=== PATIENT | male | born 1970 ===

== ENCOUNTER 2023-09-26 08:05 | Outpatient (REF) | payer OTHER, SELFPAY ==
--- NOTE | ~2023-09-26 | XR_ITS ---
EXAMINATION: XR WRIST, LEFT CLINICAL INFORMATION: Pain. COMPARISON: None available. TECHNIQUE: PA, lateral, and oblique views of the left wrist. FINDINGS: Comminuted, displaced and impacted distal intra-articular radial fracture. Displaced ulnar styloid fracture. On the lateral view, there is anterior subluxation of the carpal bones with respect to the radius and ulna. Carpal rows are maintained. No additional fractures. Significant soft tissue swelling surrounding the wrist. No unexpected radiopaque foreign bodies. XR/XR wrist LT min 3V IMPRESSION: 1. Distal radial and ulnar fractures as above. 2. Anterior subluxation of the carpal bones with respect to the radius and ulna.
== END 2023-09-26 08:06 | disposition home or self-care (01) ==
LOC: HO.HOSX 08:05
PROVIDERS: PCP Nurse Practitioner Family; Visit Provider Physician Assistant
DX: M25.532 Pain in left wrist (principal)
CPT/HCPCS: 73110

== ENCOUNTER 2023-09-26 08:05 | Outpatient (AMB) | payer OTHER, SELFPAY ==
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
[2023-09-26 08:39] VITALS: BMI 25.4
== END 2023-09-26 09:31 | disposition home or self-care (01) ==
PROVIDERS: PCP Nurse Practitioner Family; Visit Provider Physician Assistant
DX: S52.561A Barton's fracture of right radius, initial encounter for closed fracture (principal)
CPT/HCPCS: 25600; 99204

== ENCOUNTER 2023-09-27 08:19 | Day surgery (SDC) | payer OTHER, SELFPAY ==
[2023-09-27] VITALS (10 sets, daily range): BP systolic 97–110; BP diastolic 63–76; PULSE 54–70; RESP 14–20; TEMP 36.2–36.4; O2SAT 94–99; BMI 26.5
--- NOTE | ~2023-09-27 | FL_ITS ---
CLINICAL INDICATION: Left wrist fracture FINDINGS: Technical assistance and equipment were provided by the Department of Radiology during intraoperative fluoroscopy for left wrist ORIF. 7, limited fluoroscopic spot images are submitted. A radiologist was not present during the procedure. Images redemonstrate the previously seen comminuted, impacted fracture of the distal end of the left radius. Subsequent images demonstrate various stages of placement of fixation plate and screws across this fracture. There may be minimal widening of the scapholunate space, equivocal. An avulsion fracture of the ulnar styloid remains. The images are available for review on PACS. TOTAL FLUOROSCOPY TIME: 87 seconds. DOSE AREA PRODUCT: 0.2 Gy-cm2 (nevarez-centimeter squared) FL/FL guidance in OR IMPRESSION: Technical assistance and equipment provided by the Department of Radiology during intraoperative fluoroscopy, as above. Please see operative report for further details.
--- NOTE | 2023-09-27 09:14 | P.OP_ITS ---
Operative Note Operative Note Date of Service: 09/27/23 Narrative: Operative Note Narrative: Preop diagnosis: 1. Left Distal radius fracture, volar Anglin Postop diagnosis: Same Procedure: 1. Left Distal radius fracture open reduction internal fixation, comminuted 3+part intra-articular Surgeon: Aleena Hunter MD Anesthesia: General anesthesia plus regional block Findings: Left distal radius fracture, volar Anglin variant with significant comminution of the distal fragment including the articular surface. He had DRUJ laxity after fixation of the distal radius Implants: A 3 hole Accu Med volar locking plate, with 5x 2.3 mm locking pegs/screws, and 3 3.5 mm cortical screws, and 2 X 0.062 K-wires Tourniquet time: 101 minutes EBL: 5.0 ml Specimen: None Drains: None Complications: None Disposition: Brought to the recovery room in stable condition Plan: Follow-up in 10-14 days for wound check, suture removal and postop radiographs The patient will be placed a [place] cast. Cast change at 4 weeks. Placed back in a [place] cast and remove the K-wires between 5 and 6 weeks. Encouraged no lifting of anything heavier than a cell phone. Please encourage active and passive range of motion of the digits. Indications: The patient is a 53 year old man with a displaced volar Anglin type distal radius fracture with comminution . The risks and benefits of operative treatment, including but not limited to risk of damage to blood vessels, nerves, tendons, infection, recurrence, persistent pain or numbness, incomplete resolution of preoperative symptoms, or need for further surgery were discussed with the patient and they wished to proceed with surgery. Procedure: Once consent was obtained patient was brought back to the operating suite and placed in the operating table in a supine position. A regional block was performed by the anesthesia team. Perioperative antibiotics and anesthesia was administered by the anesthesia team. A tourniquet was applied to the proximal aspect of the left upper extremity and the limb was prepped and draped in a standard surgical fashion. The limb was elevated exsanguinated with Esmarch bandage and the tourniquet inflated to 250 mm of mercury for a total tourniquet time of 101 minutes. The FluoroScan was used throughout the case to assess our reduction, and facilitate implant placement. I made an 8 cm longitudinal incision over the distal aspect of the flexor carpi radialis tendon. The incision was made through the skin to the subcutaneous tissue using a 15. Blade. Then carefully dissected down to flexor carpi radialis tendon she tenotomy scissors. The FCR tendon sheath was then incised longitudinally using tenotomy scissors under direct visualization. The FCR tendon was then retracted ulnarly. I then made a longitudinal incision in the volar forearm fascia through the floor of FCR tendon sheath using tenotomy scissors under direct visualization. I identified the interval between the radial artery and the flexor tendons. This interval was developed further with my index finger, releasing some of the muscular fibers of the flexor pollicis longus. A dull weatlander retractor was then placed. I then created an ulnarly based flap of the pronator quadratus by releasing the radial and distal edges using a 15. Blade. A Silva elevator was used to elevate the pronator quadratus from the volar surface of the distal radius. This then revealed to us our distal radius fracture. This is a comminuted intra-articular volar Anglin type fracture. The carpus and proximal articular fragment were migrated proximally 1.5-2 cm. In addition to the main sagittal fracture line resulting in the volar Anglin fragment, there were also several longitudinally oriented fractures extending through the distal fragment. An open reduction was then performed on our distal radius fracture. It was held provisionally using a 0.062 K-wire passed retrograde through the radial styloid extending obliquely to the more proximal ulnar cortex of the radial shaft. I then placed a short standard 3 hole Accu Med volar locking plate on the volar surface of the distal radius. I placed a single K-wire through the distal aspect of the plate and into the distal radius. This was assessed using fluoroscopic images. I was satisfied with the placement of our plate. I then placed 4x 2.3 mm locking screws/pegs in the distal aspect of the plate and distal radius by 1st drilling bicortically with a 1.8 mm drill bit, measuring with a depth gauge, and placing the appropriate length locking screws/pegs. The placement of our plate and screws was then assessed again using fluoroscopic images. The once satisfied with the placement of the volar locking plate and screws on the distal aspect of the distal radius, the plate was then reduced to the shaft of the radius. I then placed 3 3.5 mm cortical screws to the proximal aspect of the plate and into the shaft of the radius. This was done by 1st drilling bicortically with a 2.8 mm drill bit, measuring with a depth gauge, and placing the appropriate length screw. The provisional oblique K-wire was removed. I then placed an additional 2.3 mm locking peg into the radial styloid fragment. The DRUJ was assessed and found to have some laxity on exam. I reduced the DRUJ and put the wrist and some supination. I then passed 20.062 K- wires transversely through the distal ulna, across the DRUJ and into the distal radius. Final radiographs were then obtained. The pins were bent cut short had pin caps applied. I was satisfied with our reduction and placement of all implants. At this point the wound was irrigated with normal saline. The pronator quadratus was reduced back over the volar locking plate using some 3-0 Vicryl suture material. The tourniquet was then deflated and hemostasis was obtained with a brief period of local pressure and bipolar monopolar electrocautery. The subcutaneous layer was then reapproximated using some 4-0 Vicryl suture, and the skin edges were reapproximated using some 5 0 Prolene suture. The wound was then infiltrated with some 1% lidocaine with epinephrine postop pain control. A sterile dressing and a sugar-tong splint allowing for active flexion and extension of the digits was applied. The patient appears to have tolerated the procedure well and with no complications. All digits were well vascularized conclusion of the case.
--- NOTE | 2023-09-27 09:14 | MHC.SHP ---
Pre-Procedural Eval Section A - 24 Hr Update-Section A only Date of Service: 09/27/23 The patient is an INPATIENT: No Changes since office visit: No Cold of Flu in the past 2 weeks, No New Medical Problems, No Changes in Medication and No Patient answered all questions The patient has been examined within 24 hours of the surgical procedure. The History & Physical has been completed within 30 days and I have reviewed it.: Yes Section B - Complete if H&P > 30 days Chief Complaint: Unspecified fracture of the lower end of left radi Allergies: Allergies Allergy/AdvReac Type Severity Reaction Status Date / Time No Known Allergies Allergy Verified 09/26/23 08:22 Plan I have reviewed the history and physical and performed a pertinent physical examination on my patient. No changes have occurred unless specified. Time Spent With Patient Time: Total time managing care of this patient today ____ minutes.
--- NOTE | 2023-09-27 09:19 | HO.ANESPROP2 ---
HPI - Anesthesia Eval Consult details Narrative: For ORIF left wrist PMFSH Active Problems Active Problems: All Active Problems (Updated 09/26/23 @ 09:01 by Karen Ruby PA-C) Distal radius fracture, right (Acute) Past Medical History Medical History (Updated 09/26/23 @ 09:01 by Karen Ruby PA-C) Back pain Depression Family History Family history of problems with anesthesia: No Surgical History Surgical History (Updated 09/26/23 @ 08:49 by Karen Ruby PA-C) History of surgery on lower extremity History of Problems with Anesthesia: No Social History Social History (Updated 09/26/23 @ 08:24 by Onelia Ceballos Luzmaria) Patient Tobacco Use Status: Current everyday Tobacco user Tobacco use type: Cigarette Cigarette Packs Per Day: 0.5 Cigarettes Per Day: 10.0 Use of substances other than those prescribed or required for medical reasons: Yes Are you DNR?: No Advance Directives: No Advance Directives Information Provided: Yes Current occupational status: unemployed Current occupation: right hand dominant Meds Allergies Allergy/AdvReac Type Severity Reaction Status Date / Time No Known Allergies Allergy Verified 09/26/23 08:22 Exam Height,Weight and Vital Signs: Height 6 ft Weight 88.541 kg Last Vital Signs Temp 97.5 F 09/27/23 09:06 Pulse 65 09/27/23 09:06 Resp 18 09/27/23 09:06 BP 110/67 09/27/23 09:06 Pulse Ox 95 09/27/23 09:06 O2 Del Method Room Air 09/27/23 09:06 Airway Mallampati Class: I TM Dist: >3cm Neck ROM: Full Loose/Missing/Broken Teeth: No Heart: ok Lungs: ok Assessment and Plan Assessment Anesthesia Assessment: Anesthesia Plan Discussed and Chart Reviewed Final Anesthetic Review Family History of Problems with Anesthesia: No History of Problems with Anesthesia: No NPO: Yes ASA Class: I Final Preanesthetic Review: No Changes in Pt Med Stat, Meds/Allgs Chart Reviewed, Consent Obtained/Reviewed and Anes Risks/Benef Reviewed Patient Risk: Low Procedure Risk: Low Anesthetic Plan Anesthetic Plan: GA, Regional Block and Agree w/ Assess. and Plan Disposition: Standard PACU
[2023-09-27] MEDS: Lactated Ringers 1,000 ML 50 ML IVCONT (09:34)
== END 2023-09-27 15:50 | disposition home or self-care (01) ==
PROVIDERS: PCP Nurse Practitioner Family; Visit Provider Orthopaedic Surgery
PROC: (CPT 25609; principal; 2023-09-27 10:20)
DX: S52.562A Barton's fracture of left radius, initial encounter for closed fracture (principal); M25.232 Flail joint, left wrist; V89.2XXA Person injured in unspecified motor-vehicle accident, traffic, initial encounter; X58.XXXA Exposure to other specified factors, initial encounter; Y93.55 Activity, bike riding; Y92.410 Unspecified street and highway as the place of occurrence of the external cause; Y99.9 Unspecified external cause status; M54.9 Dorsalgia, unspecified; F32.A Depression, unspecified; F17.210 Nicotine dependence, cigarettes, uncomplicated
CPT/HCPCS: 25609; C1713; C1769; J0665; J0690; J1100; J2250; J2704; J2795; J3010

== ENCOUNTER → 2023-09-27 08:19 | Outpatient (BNV) | payer OTHER, SELFPAY | PROVIDERS: PCP Nurse Practitioner Family; Visit Provider Orthopaedic Surgery | DX: S52.562A Barton's fracture of left radius, initial encounter for closed fracture (principal); Z04.3 Encounter for examination and observation following other accident | CPT/HCPCS: 25609 ==

== ENCOUNTER 2023-10-09 15:29 | Outpatient (REF) | payer OTHER, SELFPAY | END 2023-10-09 15:30 | disposition home or self-care (01) | LOC: HO.HOSX 15:29 | PROVIDERS: Visit Provider Orthopaedic Surgery | DX: Z13.89 Encounter for screening for other disorder (principal) ==

== ENCOUNTER 2023-10-10 12:25 | Outpatient (REF) | payer OTHER, SELFPAY ==
--- NOTE | ~2023-10-10 | XR_ITS ---
EXAMINATION: XR WRIST, LEFT CLINICAL INFORMATION: Pain in left wrist, left wrist fracture COMPARISON: Fluoroscopy images of 09/27/2023. Radiographs of 09/26/2023. TECHNIQUE: PA, lateral, and oblique views of the left wrist. FINDINGS: Redemonstration of comminuted, impacted distal intra-articular radial fracture with fixation plate and screws. Two K wires have been placed horizontally along the distal aspect. Alignment is improved since 09/26/2023 preop images. Redemonstration of mild widening of the scapholunate space. Redemonstration of avulsion fracture of the ulnar styloid. XR/XR wrist LT min 3V IMPRESSION: Status post ORIF of distal radial fracture.
== END 2023-10-10 12:26 | disposition home or self-care (01) ==
LOC: HO.HOSX 12:25
PROVIDERS: PCP Nurse Practitioner Family; Visit Provider Orthopaedic Surgery
DX: S52.502D Unspecified fracture of the lower end of left radius, subsequent encounter for closed fracture with routine healing (principal); R20.0 Anesthesia of skin; R20.2 Paresthesia of skin
CPT/HCPCS: 73110; 97140; 99212

== ENCOUNTER 2023-10-10 12:25 | Outpatient (AMB) | payer OTHER, SELFPAY ==
--- NOTE | 2023-10-10 12:28 | A.OFFVIS_ITS ---
Intake Intake Visit Reasons: PO LT distal radius ORIF 09/26/23 AR Intake Note: Micheal 53 yr old male presents today for his PO LT distal radius ORIF 09/26/23 AR. Dressing removed and xrays updated in office. States he he has pain and swelling in his finngers. Allergies No Known Allergies Allergy (Verified 10/10/23 12:48) HPI PO LT distal radius ORIF 09/26/23 AR HPI Details Micheal is a 53 year old right hand dominant man who presents S/P left distal radius ORIF, DOS: 09/27/23. This was a severely comminuted intra- articular fracture that was also a volar Anglin variant with proximal migration of the carpus, and DRUJ instability He complains of pain & swelling in his fingers, along with pain in his proximal mid forearm when he moves his fingers. Because it hurt to move his fingers he has not been moving his fingers. He complains of numbness in the index & middle fingers, which he says began [ ]. [facility] Medical History (Updated 10/10/23 @ 13:38 by Donn Paez) Back pain Depression Surgical History History of surgery on lower extremity Social History Patient Tobacco Use Status: Current everyday Tobacco user Tobacco use type: Cigarette Cigarette Packs Per Day: 0.5 Cigarettes Per Day: 10.0 Current occupational status: unemployed Current occupation: right hand dominant Review of Systems Const All systems reviewed & are unremarkable except as noted in HPI and below Physical Exam Const General: no acute distress and alert Orientation/consciousness: patient oriented x3 Neuro General: patient oriented x3 Extrem Other: The patient was alert oriented and in no acute distress The incision & pin sites are healing well with no erythema drainage or evidence of infection. Initially he had his hand held in a position of non-use, and his wrist in slight flexion His MCP joints had ~20 degrees of flexion His PIP joints had ~30-40 degrees of flexion He was very stiff and resistant to having his fingers moved We worked on ROM exercises for more than 20 minutes today in clinic Before leaving clinic he actively extend and bring his fingertips ~2-3cm from his palm. Passively I could bring his fingers ~1cm from his palm Decreased sensation in the thumb and index finger. Normal sensation to all other digits. Initially he had dense numbness but his sensation improved following ROM exercises Cap refill is brisk Radiographs: 3 views of the left wrist were taken and viewed by me today in clinic. They show a the comminuted intra-articular distal radius fracture with satisfactory position of all implants. The reduction of the lunate facet and volar Anglin aspect of the fracture are satisfactory. He does appear to have a bit of a step-off to the radial styloid fragment. The DRUJ appears to be in a reduced position, and the position of the ulnar styloid fragment is satisfactory. He has 2 transverse K-wires crossing the DRUJ which are also in satisfactory position. Psych Appearance: grossly normal Affect: normal affect Attitude: cooperative Assessment & Plan Assessment & Plan (1) Fracture of left distal radius: Code(s): S52.502A - Unspecified fracture of the lower end of left radius, initial encounter for closed fracture (2) Numbness and tingling in left hand: Code(s): R20.0 - Anesthesia of skin; R20.2 - Paresthesia of skin Plan Assessment & Plan: 1. Left distal radius fracture, volar Anglin with significant comminution of the distal radial articular surface s/p ORIF 2. Left wrist DRUJ instability Appreciated following ORIF of the distal radius treated with CRPP of the DRUJ DOS: 09/27/23 3. Left hand numbness In the thumb & index fingers Symptoms began following his injury & surgery Some improvement once we got him moving his fingers today 4. Significant stiffness of the fingers of the left hand postoperatively. He was afraid to move them and so he really has not move them since the time of surgery. We worked on ROM exercises for more than 20 minutes today in clinic, and I demonstrated exercises he will perform at home He will perform finger ROM exercises at home The patient appears to be doing well post-operatively I educated him about the post-operative course He was placed in a [place] cast today. If he continues to have numbness we may consider a carpal tunnel release in the near future, though his sensation id improve somewhat in clinic after performing ROM exercises. I explained the signs and symptoms of infection, and he knows to contact us if he has any concerns I discussed activity modifications, he is to lift nothing heavier than a cellphone for the next 4 weeks He will follow up in 4 weeks, with X-rays, 3V L wrist, OOP Anticipate K-wire removal at about 5 weeks post-op. He will likely need early OT hand therapy to start working on DRUJ and wrist range of motion Scribed for Aleena Hunter MD by Donn Paez, medical record librarians teacher, on 10/10/23 at 1:12 PM, EST. Orders: Orders XR wrist LT min 3V 10/10/23 M25.532 - Pain in left wrist OT Evaluation and Treatment 10/10/23 R20.0 - Anesthesia of skin, R20.2 - Paresthesia of skin, S52.502A - Unspecified fracture of the lower end of left radius, initial encounter for closed fracture Coding Level of Care Code Global (39256) Diagnoses Fracture of left distal radius S52.502A Numbness and tingling in left hand R20.0; R20.2
== END 2023-10-10 14:43 | disposition home or self-care (01) ==
LOC: HO.HOS 12:25
PROVIDERS: PCP Nurse Practitioner Family; Visit Provider Orthopaedic Surgery
DX: S52.502A Unspecified fracture of the lower end of left radius, initial encounter for closed fracture (principal); R20.0 Anesthesia of skin; R20.2 Paresthesia of skin
CPT/HCPCS: 29075; 97140; 99024

== ENCOUNTER 2023-11-07 09:12 | Outpatient (REF) | payer OTHER, SELFPAY ==
--- NOTE | ~2023-11-07 | XR_ITS ---
EXAMINATION: XR WRIST, LEFT CLINICAL INFORMATION: Pain. COMPARISON: Prior radiographs, most recently 10/10/2023. TECHNIQUE: PA, lateral, and oblique views of the left wrist. FINDINGS: There is bony demineralization. A healing fracture of the distal left radius is noted, in stable alignment. An intact orthopedic fixator plate and fixator screws are applied to the distal left radius. Orthopedic pins again transversely span the distal radioulnar articulation. The proximal and distal carpal rows are intact. No focal soft tissue swelling, gas or foreign body is seen. XR/XR wrist LT min 3V IMPRESSION: There is stable alignment status-post ORIF of a distal left radial fracture.
== END 2023-11-07 09:13 | disposition home or self-care (01) ==
LOC: HO.HOSX 09:12
PROVIDERS: Visit Provider Orthopaedic Surgery
DX: S52.502A Unspecified fracture of the lower end of left radius, initial encounter for closed fracture (principal); R20.0 Anesthesia of skin; R20.2 Paresthesia of skin
CPT/HCPCS: 73110; 99212

== ENCOUNTER 2023-11-07 09:58 | Outpatient (AMB) | payer OTHER, SELFPAY ==
--- NOTE | 2023-11-07 10:04 | A.OFFVIS_ITS ---
Intake Intake Visit Reasons: PO LT distal radius ORIF 09/26/23 AR-pin removal Intake Note: Micheal 53 yr old male presents today for his PO left distal radius ORIF 09/26/23 AR-pin removal. Xrays updated in office. States he is doing well, states numbness in his thumb and IF. Allergies No Known Allergies Allergy (Verified 11/07/23 10:06) HPI PO LT distal radius ORIF 09/26/23 AR-pin removal HPI Details Micheal is a 53 year old right hand dominant man who presents S/P left distal radius ORIF, DOS: 09/27/23. This was a severely comminuted intra- articular fracture that was also a volar Anglin variant with proximal migration of the carpus, and DRUJ instability. He is here for follow-up and DRUJ K-wire removal He says he is doing better that before, and has been working on trying to move his fingers while in his cast. He says his sensation has not returned to normal, he continues to have numbness in his thumb & index finger. The sensation is better and normal to the middle ring and small fingers. He wants to know if this will return on its own. [facility] Medical History (Updated 10/10/23 @ 13:38 by Donn Paez) Back pain Depression Surgical History History of surgery on lower extremity Social History Patient Tobacco Use Status: Current everyday Tobacco user Tobacco use type: Cigarette Cigarette Packs Per Day: 0.5 Cigarettes Per Day: 10.0 Current occupational status: unemployed Current occupation: right hand dominant Physical Exam Const General: no acute distress and alert Orientation/consciousness: patient oriented x3 Neuro General: patient oriented x3 Extrem Other: The patient was alert oriented and in no acute distress The incision & pin sites are healing well with no erythema drainage or evidence of infection. K-wires removed today, which he tolerated well We worked on ROM exercises today in clinic After the K-wires were removed we worked on some gentle pronation and supination exercises. Before leaving clinic he had an ~20 degree arc of wrist prono- supination His wrist is held mostly in supination Numbness in the thumb and radial digital nerve distribution of the index finger. More normal sensation to the ulnar nerve distribution of the index finger and all other digits He can actively bring his fingertips to a weak fist and back into extension. Mild stiffness in the fingers in full extension and flexion. This is a significant improvement from last time. Understandably he is got significant stiffness in wrist flexion extension and prono-supination. Cap refill is brisk Radiographs: 3 views of the left wrist were taken and viewed by me today in clinic. They show a the comminuted intra-articular distal radius fracture with satisfactory position of all implants. The reduction of the lunate facet and volar Anglin aspect of the fracture are satisfactory, particularly on the lateral view. They were unable to get a good PA view today. The DRUJ appears to be in a reduced position, and the position of the ulnar styloid fragment is satisfactory. He has 2 transverse K-wires crossing the DRUJ which are also in satisfactory position. Psych Appearance: grossly normal Affect: normal affect Attitude: cooperative Assessment & Plan Assessment & Plan (1) Fracture of left distal radius: Code(s): S52.502A - Unspecified fracture of the lower end of left radius, initial encounter for closed fracture (2) Numbness and tingling in left hand: Code(s): R20.0 - Anesthesia of skin; R20.2 - Paresthesia of skin Plan Assessment & Plan: 1. Left distal radius fracture, volar Anglin with significant comminution of the distal radial articular surface S/P ORIF 2. Left wrist DRUJ instability Appreciated following ORIF of the distal radius treated with CRPP of the DRUJ DOS: 09/27/23 DRUJ crossing K-wires removed: 11/07/23 The patient appears to be doing well post-operatively I educated him about the post-operative course I discussed activity modifications, he is to work on ROM exercises at home, and begin to use his hand for lightweight activities only. I ordered OT hand therapy to work on DRUJ and wrist ROM, particularly pronosupination. He is concerned he may not be able to get a ride down for his appointments but says he will try He will follow up in 4 weeks for a ROM check, with X-rays, 3 V L wrist 3. Left carpal tunnel syndrome, based on history & PE Dense numbness in the thumb & index fingers that does not appear to be improving further. I discussed this with him and recommend surgery The risks and benefits of operative treatment were discussed with the patient and the patient wishes to proceed with surgery. These risks include, but are not limited to risk of damage to blood vessels, nerves, tendons, infection, recurrence, incomplete relief of preoperative symptoms, persistent pain, possible need for further surgery and the risks associated with regional blocks and anesthesia. The plan is to take the patient to the operating room sometime in the next few weeks for the following procedures: 1. Left carpal tunnel release, under local All of the preoperative paperwork including the consent was reviewed today. All the patient's questions were answered. The patient understands that they will be contacted by our denture contour wire specialist soon to schedule this procedure. I want to give him a little time to get some improvement in his prono-supination. We hope to perform this carpal tunnel release in the next 3-4 weeks. He denies Diabetes, blood thinners, asthma, heart, lung, kidney issues Scribed for Aleena Hunter MD by Donn aPez, medical transcription editor, on 11/07/23 at 10:10 AM, EST. Orders: Orders OT Evaluation and Treatment Today R20.0 - Anesthesia of skin, R20.2 - Paresthesia of skin, S52.502A - Unspecified fracture of the lower end of left radius, initial encounter for closed fracture XR wrist LT min 3V Today M25.532 - Pain in left wrist Coding Level of Care Code Est Pt Level 3 (45051) Diagnoses Fracture of left distal radius S52.502A Numbness and tingling in left hand R20.0; R20.2
== END 2023-11-07 10:40 | disposition home or self-care (01) ==
PROVIDERS: PCP Nurse Practitioner Family; Visit Provider Orthopaedic Surgery
DX: G56.02 Carpal tunnel syndrome, left upper limb (principal); S52.502A Unspecified fracture of the lower end of left radius, initial encounter for closed fracture; R20.2 Paresthesia of skin; R20.0 Anesthesia of skin
CPT/HCPCS: 99214

== ENCOUNTER 2023-11-20 09:56 | Outpatient (REF) | payer SELFPAY ==
--- NOTE | ~2023-11-20 | XR_ITS ---
EXAMINATION: XR WRIST, LEFT CLINICAL INFORMATION: Pain in left wrist COMPARISON: Left wrist 11/07/2023 TECHNIQUE: PA, lateral, and oblique views of the left wrist. FINDINGS: There is bony demineralization. A healing fracture of the distal left radius is noted, in stable alignment. Plate and screws in the distal left radius are intact. Interval removal of orthopedic pins seen at the distal radioulnar articulation. Small ossific density adjacent to the ulnar styloid likely represents a mildly displaced fracture. XR/XR wrist LT min 3V IMPRESSION: Stable alignment status post ORIF of distal left radial fracture.
== END 2023-11-20 09:57 | disposition home or self-care (01) ==
LOC: HO.HOSX 09:56
PROVIDERS: Visit Provider Orthopaedic Surgery
DX: S52.502D Unspecified fracture of the lower end of left radius, subsequent encounter for closed fracture with routine healing (principal); R20.0 Anesthesia of skin; R20.2 Paresthesia of skin
CPT/HCPCS: 73110; 99212

== ENCOUNTER 2023-11-20 10:57 | Outpatient (AMB) | payer OTHER, SELFPAY ==
--- NOTE | 2023-11-20 11:01 | A.OFFVIS_ITS ---
Vital Signs 11/20/23 11:16 Handedness Right Intake Visit Reasons: PO LT distal radius ORIF 09/26/23 Intake Note: Micheal is a 53 year old right hand dominant male who presents today for a post operative visit s/p left distal radius ORIF 09/26/23. His pins were removed at his last visit, and he was placed in . Patient reports that he is having increased pain in the morning with numbness and tingling in the 1st and 2nd digits. He has been using ice to alleviate some of his pain. He expresses the wrist is sensitive to palpitation. He is unable to straighten out his wrist or fingers and is having swelling with ROM still limited. booked for Left Carpal Tunnel Release 12/17/23 Allergies No Known Allergies Allergy (Verified 11/20/23 11:16) HPI HPI PO LT distal radius ORIF 09/26/23: Details: Micheal is a 53 year old right hand dominant man who presents S/P left distal radius ORIF, DOS: 09/27/23. This was a severely comminuted intra-articular fracture that was also a volar Anglin variant with proximal migration of the carpus, and DRUJ instability. He presents today with complaints of increased pain in his wrist & fingers. He says he has been working on finger & wrist ROM at home, and is scheduled to begin OT hand therapy on 11/22/23. He says his pain and stiffness is worse particularly in the mornings, and improves slightly throughout the day. He feels he is still having difficulties with stiffness, which he finds bothersome. He also reports some hypersensitivity at his wrist, he says putting a jacket on is painful as it rubs along his wrist. He says he continues to have numbness in his thumb & index finger. The sensation is better and normal to the middle ring and small fingers. He is scheduled for a left carpal tunnel release on 12/17/23. He says he is currently not working ON LICENSE OF [facility] Medical History Back pain Depression Surgical History History of surgery on lower extremity Social History Patient Tobacco Use Status: Current everyday Tobacco user Tobacco use type: Cigarette Cigarette Packs Per Day: 0.5 Cigarettes Per Day: 10.0 Current occupational status: unemployed Current occupation: right hand dominant Physical Exam Const General: no acute distress and alert Orientation/consciousness: patient oriented x3 Neuro General: patient oriented x3 Extrem Other: The patient was alert oriented and in no acute distress The incision & pin sites are now well healed with no erythema drainage or evidence of infection. We worked on ROM exercises today in clinic, particularly wrist pronosupination. Before leaving clinic he had an ~40 degree arc of wrist prono-supination, from ~60 to ~20 degrees of supination. Wrist extension: ~10 degrees Wrist flexion: ~20 degrees He can actively bring his fingertips to a weak fist and back into extension. Mild flexion tightness in the PIP joints with extension, but he can place his hand flat on the table. He can oppose his thumb to the tips of all digits Numbness in the thumb and radial digital nerve distribution of the index finger. More normal sensation to the ulnar nerve distribution of the index finger and all other digits Cap refill is brisk Radiographs: 3 views of the left wrist were taken and viewed by me today in clinic. They show a the comminuted intra-articular distal radius fracture with satisfactory position of all implants. The reduction of the lunate facet and volar Anglin aspect of the fracture are satisfactory, particularly on the lateral view. It looks like there was some settling of the radial styloid fragment with an increased step-off between the lunate and scaphoid facets. It looks like the scaphoid has now settled into the scaphoid facet. There is interval bony healing. The DRUJ appears to be in a reduced position, and the position of the ulnar styloid fragment is satisfactory. Psych Appearance: grossly normal Affect: normal affect Attitude: cooperative Assessment & Plan Assessment & Plan (1) Fracture of left distal radius: Code(s): S52.502A - Unspecified fracture of the lower end of left radius, initial encounter for closed fracture Category: Medical (2) Numbness and tingling in left hand: Code(s): R20.0 - Anesthesia of skin; R20.2 - Paresthesia of skin Category: Medical Plan Assessment & Plan: 1. Left distal radius fracture, volar Anglin with significant comminution of the distal radial articular surface S/P ORIF 2. Left wrist DRUJ instability Appreciated following ORIF of the distal radius treated with CRPP of the DRUJ DOS: 09/27/23 DRUJ crossing K-wires removed: 11/07/23 The patient appears to be doing well post-operatively He does have significant wrist stiffness in flexion, extension and in pronation I educated him about the post-operative course I discussed activity modifications, he is to work on ROM exercises at home, and begin to use his hand for lightweight activities only. He should touch about his hand & wrist to improve his hypersensitivity He is scheduled to begin OT hand therapy on 11/22/23, to work on DRUJ and wrist ROM, particularly pronosupination. He is concerned he may not be able to get a ride down for his appointments but says he will try He will follow up in 4 weeks for a ROM check, with X-rays, 3 V L wrist 3. Left carpal tunnel syndrome, based on history & PE Dense numbness in the thumb & index fingers that does not appear to be improving further. I discussed this with him and recommend surgery The risks and benefits of operative treatment were discussed with the patient and the patient wishes to proceed with surgery. These risks include, but are not limited to risk of damage to blood vessels, nerves, tendons, infection, recurrence, incomplete relief of preoperative symptoms, persistent pain, possible need for further surgery and the risks associated with regional blocks and anesthesia. The plan is to take the patient to the operating room sometime on 12/17/23 for the following procedures: 1. Left carpal tunnel release, under local All of the preoperative paperwork including the consent was reviewed today. All the patient's questions were answered. I am going to put him on the cancellation list to have surgery sooner if possible. He denies Diabetes, blood thinners, asthma, heart, lung, kidney issues Scribed for Aleena Hunter MD by Donn Paez, medical doctor md/medical director, on 11/07/23 at 10:10 AM, EST. Orders: Orders XR wrist LT min 3V Today M25.532 - Pain in left wrist Coding Level of Care Code Global (32092) Diagnoses Fracture of left distal radius S52.502A Numbness and tingling in left hand R20.0; R20.2
== END 2023-11-20 11:58 | disposition home or self-care (01) ==
PROVIDERS: PCP Nurse Practitioner Family; Visit Provider Orthopaedic Surgery
DX: S52.502A Unspecified fracture of the lower end of left radius, initial encounter for closed fracture (principal); R20.0 Anesthesia of skin; R20.2 Paresthesia of skin
CPT/HCPCS: 99024